=== PATIENT | female | born 1960 | race African-American/Black ===

== ENCOUNTER 2018-05-09 15:37 | Outpatient (CLI) | payer BC ==
--- NOTE | 2018-05-09 16:30 | RAD ---
RIGHT HUMERUS RADIOGRAPHS TWO VIEWS: Date: 05-09-18 Provided Clinical History: Pain. FINDINGS: No evidence for fracture or other acute osseous abnormality. Soft tissues appear radiographically unr emarkable. IMPRESSION: Unremarkable humerus radiographs. POS: [facility]
== END 2018-05-09 15:38 | disposition home or self-care (01) ==
LOC: BICRAD 15:37
PROVIDERS: ATTEND Family Medicine
DX: M79.621 Pain in right upper arm (principal)

== ENCOUNTER 2018-05-28 08:52 | Outpatient (CLI) | payer BC | END 2018-05-28 08:53 | disposition home or self-care (01) | LOC: BICMAMMO 08:52 | PROVIDERS: ATTEND Obstetrics & Gynecology | DX: Z12.31 Encounter for screening mammogram for malignant neoplasm of breast (principal); R92.1 Mammographic calcification found on diagnostic imaging of breast | CPT/HCPCS: 77063; 77067 ==

== ENCOUNTER 2021-06-20 08:55 | Outpatient (CLI) | payer BC | END 2021-06-20 08:56 | disposition home or self-care (01) | LOC: BICMAMMO 08:55 | PROVIDERS: ATTEND Family Medicine | DX: Z12.31 Encounter for screening mammogram for malignant neoplasm of breast (principal) | CPT/HCPCS: 77063; 77067 ==

== ENCOUNTER 2022-12-15 04:09 | Inpatient (IN) | payer BC ==
[2022-12-15] MEDS ORDERED: Morphine 4 MG/ML VIAL ONE (04:22)
[2022-12-15 04:53] LABS: #Basophils 0.1 thou/uL (0.0-0.2); #Lymphocytes 2.6 thou/uL (1.20-3.40); #Monocytes 0.5 thou/uL (0.11-0.59); %Basophils 0.5 % (0.0-1.0); %Eosinophils 0.2 % (0.0-10.0); %Lymphocytes 13.6 % (21.0-51.0); %Monocytes 2.8 % (0.0-10.0); %Neutrophils 82.9 % (42.0-75.0); Hemoglobin 12.8 g/dL (12.0-16.0); Mean Corpuscular Volume 96.8 fl (78.0-98.0); Mean Platelet Volume 7.9 fL (7.4-10.4); Platelet Count 399 10x3/uL (130-400); RBC Distribution Width 11.1 % (11.5-14.5); Red Blood Cell (RBC) Count 4.02 mill/uL (4.20-5.40); White Blood Cell (WBC) Count 19.3 10x3/uL (4.8-10.8)
[2022-12-15 05:08] LABS: ALT (SGPT) 7 U/L (8-55); AST (SGOT) 16 U/L (5-34); Albumin 4.6 g/dL (3.4-4.8); Alkaline Phosphatase 98 U/L (40-110); Anion Gap 17 mmol/L (10-20); BUN (Urea Nitrogen) 15 mg/dL (9.8-20.1); Bilirubin, Total 0.4 mg/dL (0.2-1.2); Calc. Creatinine Clearance 0 mL/min (70-130); Calcium 11.1 mg/dL (7.8-10.44); Carbon Dioxide 21 mmol/L (23-31); Chloride 104 mmol/L (98-107); Estimated GFR 70; Globulin 3.5 g/dL (2.4-3.5); Glucose 165 mg/dL (80-115); Lipase 18 U/L (8-78); Potassium 3.7 mmol/L (3.5-5.1); Protein, Total 8.1 g/dL (5.8-8.1); Sodium 138 mmol/L (136-145)
[2022-12-15] MEDS ORDERED: Piperacillin/Tazobactam 3.375 GM VIAL ONE ×2 (05:20→13:09)
[2022-12-15] MEDS ORDERED: Morphine 2 MG/ML VIAL ONE ×2 (08:17→09:36)
[2022-12-15 08:38] LABS: Bilirubin Negative (Negative); Blood, Urine Negative (Negative); Clarity Clear (Clear); Glucose, Urine (Dipstick) Normal (Negative); Ketone, Urine 20 mg/dL (Negative); Leukocyte Negative Leu/uL (Negative); Nitrite Negative (Negative); Protein, Urine (Dipstick) Negative (Neg-Trace); Urobilinogen Normal mg/dL (Less than 2); pH, Urine 7.5 (5.0-9.0)
[2022-12-15] MEDS ORDERED: Iopamidol-370 76% 500 ML MDV (1 ML CHARGE) ONE (10:48)
[2022-12-15 12:20] VITALS: BMI 21.6
[2022-12-15] MEDS ORDERED: fentaNYL 50 mcg/mL 1 mL Vial ONE ×4 (12:33→15:48)
[2022-12-15] MEDS ORDERED: Famotidine/PF 20 mg/2ml Vial ONE (12:33)
[2022-12-15] MEDS ORDERED: SUGAMMADEX SODIUM 200 MG/2 ML VIAL ONE (12:33)
[2022-12-15] MEDS ORDERED: Bupivacaine PF 0.5% 30 ML VIAL ONE (12:44)
[2022-12-15] MEDS ORDERED: Bupivacaine HCl 0.5%/Epinephrine 1:200,000/PF 30 ml Vial ONE (12:44)
[2022-12-15] MEDS ORDERED: Ondansetron PF 4 MG/2 ML Vial IVP PRN ×3 (12:56→13:09)
[2022-12-15] MEDS ORDERED: traMADol HCl 50 MG TAB PO PRN ×2 (12:56→13:09)
[2022-12-15] MEDS ORDERED: Ipratropium/Albuterol 3 ML NEB NEB PRN ×2 (12:56→13:09)
[2022-12-15] MEDS ORDERED: Morphine 2 MG/ML VIAL IM PRN (12:57)
[2022-12-15] MEDS ORDERED: Ondansetron ODT 4 MG TAB SL PRN (13:00)
[2022-12-15] MEDS ORDERED: Acetaminophen 325 MG TAB PO SCH (13:00)
[2022-12-15] MEDS ORDERED: Sodium Chloride 0.9% 1,000 ML IV SCH ×2 (13:00)
[2022-12-15] MEDS ORDERED: Acetaminophen 325 MG TAB PO PRN (13:00)
[2022-12-15] MEDS ORDERED: Sodium Chloride 0.9% 100 ML ONE (13:09)
[2022-12-15] MEDS ORDERED: PROPOFOL 200 MG/20 ML VIAL ONE (13:17)
[2022-12-15] MEDS ORDERED: Metoclopramide HCl 10 MG/2 ML VIAL ONE (13:17)
[2022-12-15] MEDS ORDERED: Ondansetron PF 4 MG/2 ML Vial ONE (13:17)
[2022-12-15] MEDS ORDERED: Rocuronium Bromide 10 MG/ML (10ML VIAL) ONE (13:17)
[2022-12-15] MEDS ORDERED: Dexamethasone 20 MG/5 ML VIAL ONE (13:17)
[2022-12-15] MEDS ORDERED: Lidocaine 1% PF 5 ML VIAL ONE (13:17)
[2022-12-15] MEDS ORDERED: Ketorolac Tromethamine 30 MG/ML VIAL ONE (13:17)
[2022-12-15] MEDS ORDERED: Succinylcholine Chloride 100 MG/5 ML SYRINGE FS ONE (13:17)
[2022-12-15] MEDS: Sodium Chloride 0.9% 1,000 ML IV SCH (14:46)
[2022-12-15] MEDS: Acetaminophen 500 MG TAB PO SCH ×2 (14:46→20:55)
[2022-12-15] MEDS ORDERED: Morphine 2 MG/ML VIAL SLOW IVP PRN (15:32)
[2022-12-15] MEDS ORDERED: Promethazine HCl 25 MG/ML VIAL IM PRN (15:49)
[2022-12-15] MEDS ORDERED: Ondansetron HCl/PF 4 MG/2 ML Vial IVP PRN (15:49)
[2022-12-15] MEDS ORDERED: traMADol HCl 50 MG TAB PO SCH (18:00)
[2022-12-15] MEDS: traMADol HCl 50 MG TAB PO SCH (18:29)
[2022-12-15] MEDS: Senokot S 8.6-50 MG TAB PO SCH (20:55)
[2022-12-15] MEDS: Famotidine/PF 20 mg/2ml Vial SLOW IVP SCH (20:56)
[2022-12-15] MEDS ORDERED: Senokot S 8.6-50 MG TAB PO SCH (21:00)
[2022-12-15] MEDS ORDERED: Famotidine/PF 20 mg/2ml Vial SLOW IVP SCH (21:00)
[2022-12-16] MEDS: Sodium Chloride 0.9% 1,000 ML IV SCH ×3 (00:23→14:33)
[2022-12-16] MEDS: traMADol HCl 50 MG TAB PO SCH ×4 (00:24→14:29)
[2022-12-16] MEDS: Acetaminophen 500 MG TAB PO SCH ×3 (02:43→14:30)
[2022-12-16 06:31] LABS: #Lymphocytes 2.6 thou/uL (1.20-3.40); #Neutrophils 15.9 thou/uL (1.40-6.50); %Basophils 0.1 % (0.0-1.0); %Eosinophils 0.1 % (0.0-10.0); %Lymphocytes 13.3 % (21.0-51.0); %Monocytes 5.3 % (0.0-10.0); %Neutrophils 81.2 % (42.0-75.0); Hemoglobin 10.2 g/dL (12.0-16.0); Mean Corpuscular HGB CONC 34.2 g/dL (32.0-36.0); Mean Corpuscular Hemoglobin 33.8 pg (27.0-31.0); Mean Corpuscular Volume 98.7 fl (78.0-98.0); Mean Platelet Volume 8.3 fL (7.4-10.4); Platelet Count 299 10x3/uL (130-400); Red Blood Cell (RBC) Count 3.01 mill/uL (4.20-5.40); White Blood Cell (WBC) Count 19.6 10x3/uL (4.8-10.8)
[2022-12-16 06:53] LABS: Anion Gap 10 mmol/L (10-20); BUN (Urea Nitrogen) 10 mg/dL (9.8-20.1); Calc. Creatinine Clearance 71 mL/min (70-130); Calcium 9.1 mg/dL (7.8-10.44); Carbon Dioxide 23 mmol/L (23-31); Chloride 112 mmol/L (98-107); Estimated GFR 88; Glucose 94 mg/dL (80-115); Potassium 3.8 mmol/L (3.5-5.1); Sodium 141 mmol/L (136-145)
[2022-12-16] MEDS: Famotidine/PF 20 mg/2ml Vial SLOW IVP SCH (08:44)
[2022-12-16] MEDS: Senokot S 8.6-50 MG TAB PO SCH (08:44)
[2022-12-16 15:09] VITALS: BP 130/70; TEMP 98.4
== END 2022-12-16 16:55 | disposition home or self-care (01) | DRG 329 ==
LOC: ERS 04:09 → SURG A 09:30
PROVIDERS: ADMIT Surgery; ATTEND Surgery
PROC: 0YQ70ZZ Repair Right Femoral Region, Open Approach (ICD-10-PCS; principal; 2022-12-15)
PROC: 0DB84ZZ Excision of Small Intestine, Percutaneous Endoscopic Approach (ICD-10-PCS; 2022-12-15)
DX: K41.30 Unilateral femoral hernia, with obstruction, without gangrene, not specified as recurrent (principal); K55.019 Acute (reversible) ischemia of small intestine, extent unspecified; Z86.018 Personal history of other benign neoplasm; Z98.890 Other specified postprocedural states
CPT/HCPCS: 36415; 71045; 74177; 80048; 80053; 81003; 83605; 83690; 84484; 85025; 87040; 87086; 88307; 93005; 96361; 96365; 96375; 96376; C1781; J1100; J1885; J2270; J2272; J2405; J2543; J2704; J2765; J3010; J3490; J7050; Q9967; S0020; S0028